=== PATIENT | female | born 1955 | race Caucasian/White ===

== ENCOUNTER 2023-02-21 08:03 | Outpatient (CLI) | payer MEDICARE, OTHER, SELFPAY | END 2023-02-21 08:04 | disposition home or self-care (01) | PROVIDERS: PCP Family Medicine; Visit Provider Family Medicine | DX: M54.16 Radiculopathy, lumbar region (principal); M51.36 Other intervertebral disc degeneration, lumbar region | CPT/HCPCS: 62323; J0702; Q9966 ==

== ENCOUNTER 2023-08-15 08:07 | Outpatient (CLI) | payer MEDICARE, OTHER, SELFPAY | END 2023-08-15 08:08 | disposition home or self-care (01) | LOC: INJ CL 08:07 | PROVIDERS: PCP Family Medicine; Visit Provider Family Medicine | DX: M51.36 Other intervertebral disc degeneration, lumbar region (principal); M54.16 Radiculopathy, lumbar region | CPT/HCPCS: 62323; J1100; Q9966 ==